=== PATIENT | male | born 1960 | race Caucasian/White ===

== ENCOUNTER 2017-01-30 08:07 | Emergency (ER) | payer MEDICAID, OTHER ==
[~2017-01-30] VITALS: Ht 180.3 cm; Wt 96.5 kg
[2017-01-30] MEDS ORDERED: INDO25CA PO (08:42)
[2017-01-30] MEDS ORDERED: IBUP-1222 PO (08:42)
[2017-01-30 10:10] VITALS: BP 151/71
[2017-01-30 11:05] LABS: BLOOD UREA NITROGEN 14 mg/dL (7-18)
== END 2017-01-30 12:18 | disposition home or self-care (01) ==
LOC: ED 08:46
DX: M76.61 Achilles tendinitis, right leg (principal); M77.9 Enthesopathy, unspecified; M72.2 Plantar fascial fibromatosis; M10.9 Gout, unspecified; M19.90 Unspecified osteoarthritis, unspecified site
CPT/HCPCS: 36415; 80048; 82040; 84550; 85025; 85651

== ENCOUNTER 2018-11-08 10:52 | Emergency (ER) | payer MEDICAID, OTHER ==
[~2018-11-08] VITALS: Ht 180.3 cm; Wt 97.4 kg
[~2018-11-08 10:52] MED LIST: IBUP-1222 PO; INDO25CA5 PO
[2018-11-08 11:08] VITALS: BP 118/75
--- NOTE | 2018-11-08 11:16 | NUR ---
PT COULDNT NOT MAKE OUT OR READ ANY LINES WITH JUST HIS LEFT EYE
[2018-11-08] MEDS ORDERED: FLUORESCEIN/BENOXINATE 5 ML DROPS OP ONE (11:30)
[2018-11-08] MEDS ORDERED: PROPARACAINE OPHTH 0.5%, 15ML EACHEYE ONE (11:30)
--- NOTE | 2018-11-08 11:36 | NUR ---
FIRST CONTACT WITH PT. MARTINEZ. 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 My doctor retired and I need a refill on the acycliover and another med that I don't know what it is. I need to know how to get rid of this."
--- NOTE | 2018-11-08 11:53 | NUR ---
MD TO BEDSIDE FOR EVALUATION.
--- NOTE | 2018-11-08 13:02 | NUR ---
Patient given discharge instructions and they have confirmed that they understand the instructions. Patient ambulatory with steady gait. Pt left with referall, discharge paperwork, and all personal belongings.
== END 2018-11-08 13:04 | disposition home or self-care (01) ==
LOC: ED 11:49
DX: H53.132 Sudden visual loss, left eye (principal); M10.9 Gout, unspecified; M19.90 Unspecified osteoarthritis, unspecified site
CPT/HCPCS: 99282; 99283